=== PATIENT | female | born 1990 | race Caucasian/White ===

== ENCOUNTER 2022-05-07 08:10 | Emergency (ER) | payer BC, SELFPAY ==
[2022-05-07 08:19] VITALS: BP 141/91; PULSE 77; RESP 18; TEMP 35.7; O2SAT 99; BMI 40.4
[2022-05-07] MEDS: GI COCKTAIL (VISC LIDO/ANTACID) 30 ML PO (09:40)
[2022-05-07] MEDS: ONDANSETRON ODT 4 MG TAB PO (09:40)
[2022-05-07 10:02] VITALS: PULSE 87; RESP 18; O2SAT 99
--- NOTE | 2022-05-07 10:02 | CRLHL7_ITS ---
For Patients: As a result of the Century Cures Act, medical imaging exams and procedure reports are released immediately into your electronic medical record. You may view this report before your referring provider. If you have questions, please contact your health care provider. Indication: Left upper and middle abdominal pain Technique: Postcontrast CT abdomen and pelvis. 122 cc Isovue 370 intravenous contrast. Please note that all CT scans at this facility use dose modulation, iterative reconstruction, and/or weight-based dosing when appropriate to reduce radiation dose to as low as reasonably achievable. Comparison: 06/27/2021 Findings: Lung bases are clear. No pleural effusion or infiltrate. Normal liver. Gallbladder is absent. Normal common bile duct. Normal pancreas. Spleen unremarkable. Normal adrenal glands. Normal right kidney. Small 1 centimeter cyst anterior left kidney. Normal ureters. No retroperitoneal adenopathy. No mesenteric adenopathy. Stable appearance of the periumbilical subcutaneous fat. Normal uterus. The ovaries are within normal limits. Previously noted right ovarian cyst is no longer present. Normal bladder. No bowel obstruction or free air. No inflammatory change. Normal appendix. Incidental hyperdense stool at the hepatic flexure. Osseous structures are normal. No pelvic or inguinal adenopathy. Impression: Normal appendix. No bowel obstruction or inflammatory change. No evidence of inflammatory bowel disease. Status post cholecystectomy. Please note that all CT scans at this facility use dose modulation, iterative reconstruction, and/or weight-based dosing when appropriate to reduce radiation dose to as low as reasonably achievable. Dictated by Kwasi Brink MD @ 05/07/2022 11:21:11 AM (Electronically Signed)
--- NOTE | 2022-05-07 10:04 | ED_ITS ---
HPI - Abdominal Pain General Chief Complaint: Abdominal Pain Stated Complaint: Left side Abdominal pain/nausea Time Seen by Provider: 05/07/22 08:57 History of Present Illness HPI narrative: 32-year-old woman presenting to the emergency department with complaint of dyspeptic type pain but in particular a flare of upper left-sided abdominal pain that just will not go away over the last 4 days or so. This comes and goes in intensity. She also has some mid abdominal pain. She has been trying Pepcid and Pepto-Bismol. Notes a history of irritable bowel but this is much different. And has a propensity to constipation. This is different than any enteritis she has had before as well. Upper stomach pain and GERD flare may have started as long as 2 weeks ago. She notes a history of cholecystectomy. Stops herself frequently in apparent confusion noting how tired she is having w orked overnight. She has not been vomiting. Can have some nausea. Pain flares after any attempt at eating or drinking. Particularly after eating about an hour later will have diarrhea. No hematochezia. No dysuria or urgency noted. Pain is worse with movement Related Data Home Medications Medication Instructions Recorded Confirmed albuterol sulfate 90 mcg/actuation inhalation 05/07/22 aerosol inhaler (ProAir HFA) dextroamphetamine-amphetamine 10 05/07/22 mg tablet dextroamphetamine-amphetamine ER PO 05/07/22 25 mg 24hr capsule,extend release (Adderall XR) famotidine 20 mg tablet (Acid 20 mg PO DAILY 05/07/22 05/07/22 Controller) loratadine 10 mg tablet mg 05/07/22 sumatriptan succinate 100 mg tablet mg PO 05/07/22 tizanidine 2 mg tablet mg 05/07/22 Previous Rx's Medication Instructions Recorded dicyclomine 10 mg capsule 10 - 20 mg PO TID PRN abdominal 05/07/22 cramping #30 caps omeprazole 40 mg capsule,delayed 40 mg PO DAILY #30 caps 05/07/22 release Allergies Allergy/AdvReac Type Severity Reaction Status Date / Time prochlorperazine Allergy Intermediate Verified 05/07/22 08:29 [From Compazine] reglan Allergy Intermediate Anxiety Uncoded 05/07/22 08:29 [facility] Medical History (Updated 05/07/22 @ 12:14 by Kwasi Lira MD) GERD (gastroesophageal reflux disease) History of IBS Insulin resistance Migraines PCOS (polycystic ovarian syndrome) Reflux gastritis Surgical History (Updated 05/07/22 @ 08:33 by Amarilys Cottrell RN) H/O sinus surgery History of cholecystectomy History of tonsillectomy and adenoidectomy Social History Smoking Status: Never smoker How often do you have a drink containing alcohol: never AUDIT-C Alcohol total score: 0 Non-prescribed substance use: denies use Exam Narrative: Exam Narrative: Clearly sleepy. Appears uncomfortable. Breathing easily though. Appropriately casually groomed. Oropharynx unremarkable. Lungs are clear Cardiovascular regular rate and rhythm no murmur rub or gallop Abdomen is normoactive bowel sounds. Overweight. Rather tender in the left mid to upper abdomen and less so in about fdc between the umbilicus and pubic symphysis in the midline. No masses are appreciated there are no peritoneal sig ns. No flank pain Extremities are without edema. Moving all extremities without difficulty. Const: Vital Signs, click to edit/add: Vital Signs - 24 hr 05/07/22 08:19 05/07/22 10:02 Temperature 96.2 F L Pulse Rate [Pulse Oximeter] 77 87 Respiratory Rate 18 18 Blood Pressure [[facility] Upper [facility]] 141/91 H Pulse Oximetry 99 99 Oxygen Delivery Me thod Room Air Room Air Documenting provider has reviewed patient's vital signs: yes Course Course Hospital Course: Given triage note had initially ordered Zofran GI cocktail trial. She initially had declined ultimately did take it. Apparently did not affect symptoms Vital Signs Vital signs: Initial Vital Signs Temperature 96.2 F L 05/07/22 08:19 Temperature Source Temporal Artery Scan 05/07/22 08:19 Pulse Rate 77 05/07/22 08:19 Respiratory Rate 18 05/07/22 08:19 Blood Pressure 141/91 H 05/07/22 08:19 Blood Pressure Mean 107 05/07/22 08:19 Blood Pressure Position Supine 05/07/22 08:19 Pulse Oximetry 99 05/07/22 08:19 Oxygen Delivery Method 05/07/22 08:19 Vital Signs Temperature 96.2 F L 05/07/22 08:19 Pulse Rate 77 05/07/22 08:19 Respiratory Rate 18 05/07/22 08:19 Blood Pressure 141/91 H 05/07/22 08:19 Pulse Oximetry 99 05/07/22 08:19 Oxygen Delivery Method 05/07/22 08:19 Temperature 96.2 F L 05/07/22 08:19 Pulse Rate 78 05/07/22 12:00 Respiratory Rate 16 05/07/22 12:00 Blood Pressure 132/88 05/07/22 12:00 Pulse Oximetry 98 05/07/22 12:00 Oxygen Delivery Method 05/07/22 10:02 MDM - Abdominal Pain MDM Narrative Medical decision making narrative: With complaint of significant pain of this duration unaffected by GI cocktail, decided to proceed with CT imaging. Pain medication also given the form of ketorolac and morphine as well as IV fluids. Pain improved I did review IV contrasted CT scan of the abdomen pelvis. Was unremarkable. Clinical picture did potentially seem more of a functional abdominal pain. Perhaps an infectious etiology exacerbating underlying irritable bowel. Gastric ulcer? Medical Records Attestation: I reviewed the patient's medical records. Lab Data Attestation: I reviewed the patient's lab results. Labs: Lab Results 05/07/22 05/07/22 05/07/22 Range/Units 10:10 10:10 10:10 WBC 6.76 (4.50-11.00) K/uL RBC 4.34 (4.00-5.20) m/uL Hgb 12.8 (12.0-16.0) gm/dL Hct 37.4 (33.0-51.0) % MCV 86 (80-100) fL MCH 30 (26-34) pg MCHC 34 (32-36) gm/dL RDW Coeff of Levon 11.8 (11.5-15.5) % Plt Count 277 (140-440) K/uL Neut % (Auto) 44.2 (42.0-72.0) % Lymph % (Auto) 43.3 (20-44) % [place] % (Auto) 8.0 (0.0-11.0) % Eos % (Auto) 4.0 (0.0-7.0) % Baso % (Auto) 0.4 (0.0-3.0) % Neut # (Auto) 2.98 (1.7-7.0) K/uL Lymph # (Auto) 2.93 H (0.90-2.90) K/uL [place] # (Auto) 0.50 (0.00-0.90) K/UL Eos # (Auto) 0.27 (0.00-0.50) K/uL Baso # (Auto) 0.03 (0.00-0.30) K/uL Abs Immat Gran (auto) 0.01 (0.00-0.30) K/uL Sodium 138 (135-149) mmol/L Potassium 3.3 L (3.6-5.1) mmol/L Chloride 101 (96-114) mmol/L Carbon Dioxide 27 (20-32) mmol/L BUN 12 (5-24) mg/dL Creatinine 0.6 (0.5-1.5) mg/dL Estimated Creat Clear 124.85 Estimated GFR 121 ml/min Glucose 103 (60-115) mg/dL Calcium 10.2 (8.4-10.6) mg/dL Total Bilirubin 0.8 (0.1-1.5) mg/dL Direct Bilirubin 0.3 (0.0-0.5) mg/dL AST 25 (12-35) U/L ALT 23 (4-35) U/L Alkaline Phosphatase 80 (40-150) U/L C-Reactive Protein 1.0 (0.5-1.0) mg/dL Total Protein 8.1 (6.0-8.3) g/dL Albumin 4.7 (3.3-5.0) g/dL Lipase 152 (23-300) U/L HCG, Qual Negative (Negative) Urine Color Yellow (Yellow) Urine Appearance Clear (Clear) Urine pH 5.5 (5.0-8.5) Ur Specific [place] >= 1.030 (1.000-1.030) Urine Protein Negative (Negative) Urine Glucose (UA) Negative (Negative) Urine Ketones Trace A (Negative) Urine Blood Negative (Negative) Urine Nitrite Negative (Negative) Urine Bilirubin Negative (Negative) Urine Urobilinogen 0.2 (0.2-1.0) Ur Leukocyte Esterase Negative (Negative) Urine RBC 0-2 (0-2) Urine WBC 0-2 (0-5) Ur Squamous Epith Cells Few (None-Few) Urine Bacteria Few A (None) Urine Mucus Few A (None) Discharge Plan Discharge Clinical Impression: Abdominal pain, Irritable bowel Patient Disposition: Home w/ Parent or Adult Condition: Improved Additional Instructions: Continue to focus on hydration. Slow advance of diet over the next 48 hours. Diluted juices, broths and thicker soups and smoothies. Rice. [place]. I would consider transitioning over to omeprazole from your Pepcid and take omeprazole over the next couple of weeks. The Bentyl is more for the pain or cramping. If this isn't improving over this 2 week, follow-up. Might need more i nvestigation, possibly a scope. Return for marked increase in pain, intractable vomiting or diarrhea, associated fever Prescriptions: New omeprazole 40 mg capsule,delayed release(DR/EC) 40 mg PO DAILY Qty: 30 0RF dicyclomine 10 mg capsule 10 - 20 mg PO TID PRN (Reason: abdominal cramping) Qty: 30 0RF Rx Instructions: start with 1 cap per dosing No Action famotidine [Acid Controller] 20 mg tablet 20 mg PO DAILY tizanidine 2 mg tablet Label Comments: TAKE ONE TABLET BY MOUTH ONE TIME DAILY AT BEDTIME sumatriptan succinate 100 mg tablet PO Label Comments: TAKE HALF TABLET BY MOUTH EVERY 2 HOURS IF NEEDED FOR MIGRAINE. MAX DOSE: 2 TABLETS (200 MG) PER 24 HOURS. dextroamphetamine-amphetamine 10 mg tablet Label Comments: TAKE ONE TABLET BY MOUTH TWICE DAILY albuterol sulfate [ProAir HFA] 90 mcg/actuation HFA aerosol inhaler INHALATION Label Comments: Inhale 1-2 Puffs by mouth every 4 hours if needed for Shortness Of Breath loratadine 10 mg tablet Label Comments: TAKE ONE TABLET BY MOUTH ONE TIME DAILY dextroamphetamine-amphetamine [Adderall XR] 25 mg capsule,extended release 24hr PO Label Comments: TAKE ONE CAPSULE (25MG) BY MOUTH ONE TIME DAILY Follow Up/Referrals: Provider,Not a Local [Primary Care Provider] - Stand Alone Forms: [employer] Info Instructions
[2022-05-07] MEDS: 0.9 % SODIUM CHLORIDE 1000 ml 1,000 ML IV (10:19)
[2022-05-07] MEDS: KETOROLAC 15 MG/ML inj IVP (10:22)
[2022-05-07 10:23] LABS: Appearance Urine Clear (Clear); Bilirubin Urine Negative (Negative); Blood Urine Negative (Negative); Color Urine Yellow (Yellow); Glucose Urine Negative (Negative); Ketones Urine Trace (Negative); Leukocyte Esterase Urine Negative (Negative); Nitrite Urine Negative (Negative); Protein Urine Negative (Negative); Specific Gravity Urine >= 1.030 (1.000-1.030); Urobilinogen Urine 0.2 (0.2-1.0); pH Urine 5.5 (5.0-8.5)
[2022-05-07 10:24] LABS: HCG Qualitative* Negative (Negative)
[2022-05-07 10:25] LABS: Basophils Absolute Auto 0.03 K/uL (0.00-0.30); Basophils Percent Auto 0.4 % (0.0-3.0); Eosinophils Absolute Auto 0.27 K/uL (0.00-0.50); Hematocrit 37.4 % (33.0-51.0); Hemoglobin* 12.8 gm/dL (12.0-16.0); Immature Granulocytes Abs Auto 0.01 K/uL (0.00-0.30); Lymphocytes Absolute Auto 2.93 K/uL (0.90-2.90); Lymphocytes Percent Auto 43.3 % (20-44); Mean Corpuscular HGB Conc 34 gm/dL (32-36); Mean Corpuscular Hemoglobin 30 pg (26-34); Mean Corpuscular Volume 86 fL (80-100); Neutrophils Absolute Auto 2.98 K/uL (1.7-7.0); Neutrophils Percent Auto 44.2 % (42.0-72.0); Platelet Count* 277 K/uL (140-440); RDW Coefficient of Variation % 11.8 % (11.5-15.5); Red Blood Count 4.34 m/uL (4.00-5.20); White Blood Count* 6.76 K/uL (4.50-11.00)
[2022-05-07] MEDS: MORPHINE 4 MG/ML INJ IVP (10:25)
[2022-05-07 10:28] LABS: Slide Review Reflex No
[2022-05-07 10:30] LABS: Chloride* 101 mmol/L (96-114)
[2022-05-07 10:31] LABS: Albumin* 4.7 g/dL (3.3-5.0); Potassium* 3.3 mmol/L (3.6-5.1)
[2022-05-07 10:33] LABS: Creatinine* 0.6 mg/dL (0.5-1.5); Est. Creatinine Clearance* 124.85; Estimated Glomerular Filt Rate 121 ml/min
[2022-05-07 10:34] LABS: Alanine Aminotransferase* 23 U/L (4-35); Alkaline Phosphatase* 80 U/L (40-150); Aspartate Amino Transferase* 25 U/L (12-35); Bilirubin Direct* 0.3 mg/dL (0.0-0.5); Bilirubin Total* 0.8 mg/dL (0.1-1.5); Blood Urea Nitrogen* 12 mg/dL (5-24); Calcium* 10.2 mg/dL (8.4-10.6); Carbon Dioxide* 27 mmol/L (20-32); Glucose* 103 mg/dL (60-115); Lipase* 152 U/L (23-300); Total Protein* 8.1 g/dL (6.0-8.3)
[2022-05-07 10:37] LABS: Bacteria Urine Few; Mucus Urine Few; RBC Urine 0-2 (0-2); Squamous Epithelial Cell Urine Few (None-Few); WBC Urine 0-2 (0-5)
[2022-05-07 10:54] LABS: Sodium* 138 mmol/L (135-149)
[2022-05-07 12:00] VITALS: BP 132/88; PULSE 78; RESP 16; O2SAT 98
== END 2022-05-07 12:22 | disposition home or self-care (01) ==
PROVIDERS: Emergency Provider Family Medicine
DX: R10.9 Unspecified abdominal pain (principal)
CPT/HCPCS: 36415; 74177; 80048; 80076; 81001; 83690; 84703; 85025; 86140; 87045; 87046; 87086; 87427; 94761; 96374; 96375; 99284; 99285; A9270; J1885; J2270; J7030; Q9967

== ENCOUNTER 2022-07-23 09:29 | Outpatient (CLI) | payer BC, SELFPAY ==
--- OUTSIDE RECORDS SUMMARY | 2022-07-23 09:35 | XMS_ITS | Clinical Summary ---
:1990 Author Organization [facility] [place] [address] Care Team Providers Name Role Phone Haylie Bertrand Primary Care Provider Allergies Active Allergy Reactions Severity Noted Date Comments Metoclopramide Hcl Anxiety 04/30/2016 Anxiety Prochlorperazine Anxiety 04/30/2016 Anxiety Medications Medication Sig Dispensed Refills Start End Date Status Date loratadine Take 1 Tablet 90 Tablet 2 Activ e (CLARITIN) 10 mg (10 mg) by 1 tabletIndications: mouth once Seasonal allergies daily. SUMAtriptan TAKE HALF 9 Tablet 8 Active (IMITREX) 100 mg TABLET BY 1 tabletIndications: MOUTH EVERY 2 Migraine with aura HOURS IF and without status NEEDED FOR migrainosus, not MIGRAINE. MAX intractable DOSE: 2 TABLETS (200 MG) PER 24 HOURS. tiZANidine Take 1 Tablet 30 Tablet 3 Activ e (ZANAFLEX) 2 mg (2 mg) by 2 tabletIndications: mouth at Anxiety bedtime. metFORMIN TAKE ONE 180 Tablet 1 Active (GLUCOPHAGE XR) 500 TABLET BY 2 mg Extended-Release MOUTH TWICE A tabletIndications: DAY WITH PCOS (polycystic MEALS ovarian syndrome) albuterol HFA Inhale 1-2 1 Each 0 Activ e (PRO-AIR; VENTOLIN; Puffs by 2 PROVENTIL) 90 mouth every 4 mcg/actuation hours if inhalerIndications: needed for SOB (shortness of Shortness Of breath) Breath. inhalational spacing For home use. 1 Each 0 Active deviceIndications: 2 SOB (shortness of breath) dextroamphetamine-am Take 1 30 Capsule 0 Active phetamine (Adderall Capsule (25 2 XR) 25 mg mg) by mouth Extended-Release once daily. capsuleIndications: ADHD (attention deficit hyperactivity disorder), combined type omeprazole Take 1 90 Capsule 0 Active (PRILOSEC) 40 mg Capsule (40 2 Delayed-Release mg) by mouth capsuleIndications: once daily. Gastroesophageal reflux disease with esophagitis without hemorrhage dextroamphetamine-am Take 1 30 Capsule 0 08/18/19 Active phetamine (Adderall Capsule (10 2 23 XR) 10 mg mg) by mouth Extended-Release once daily. capsuleIndications: ADHD (attention deficit hyperactivity disorder), combined type dextroamphetamine-am Take 1 Tablet 60 Tablet 0 07/19 Discontinued phetamine (AdderalL) (10 mg) by 2 22 (Reorder 10 mg mouth in the (E-canc el not tabletIndications: morning and 1 sent)) ADHD (attention Tablet (10 deficit mg) in the hyperactivity evening. disorder), combined type dextroamphetamine-am Take 1 30 Capsule 0 07/11/20 Discontinued phetamine (Adderall Capsule (25 2 22 (Reorder XR) 25 mg mg) by mouth (E-canc el not Extended-Release once daily. s ent)) capsuleIndications: ADHD (attention deficit hyperactivity disorder), combined type omeprazole Take 40 mg by 0 07/11/20 Disco ntinued (PRILOSEC) 40 mg mouth once 2 22 (R eorder Delayed-Release daily. (E-c ancel not capsule sent)) famotidine (PEPCID) Take 1 Tablet 90 Tablet 0 Discontinued 40 mg (40 mg) by 2 22 (*Patient states tabletIndications: mouth once no longer Abdominal pain, daily. taki ng/Not on epigastric sending f acility list) LORazepam (ATIVAN) Take 1 Tablet 10 Tablet 0 0 Discontinued 0.5 mg (0.5 mg) by 2 22 (*Patien t states tabIndications: mouth at no l onger Abdominal pain, bedtime if jackeline ing/Not on epigastric needed for sending facility Anxiety. list) dextroamphetamine-am Take 1 Tablet 60 Tablet 0 07/19 Discontinued phetamine (AdderalL) (10 mg) by 10 03 (*Medication 10 mg mouth two adjustment ) tabletIndications: times daily. 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 07/26/2016 Panic disorder (episodic paroxysmal anxiety) without a goraphobia 07/26/2016 ADHD (attention deficit hyperactivity disorder), combi laci type 07/26/2016 PTSD (post-traumatic stress disorder) 07/26/2016 Reflux esophagitis 05/09/2016 Depression with anxiety 05/09/2016 Resolved Problems Problem Noted Date Resolved Date Late care 08/28/2016 05/10/2022 Supervision of normal first 04/30/2016 Overview: BETTY: 08/14/16 FOB: Blood Type: A NEGATIVE 1st trimester screen: GTT/hgb: GBS status: US: Gender: 1) 2) Alerts: Management plans: Abdominal pain affecting 05/10 Decreased movement 05/10/2022 False labor 05/10/2022 Encounters Date Type Specialty Care Team Description 07/23/2022 Travel 07/19/2022 Preop Visit Haylie Bertrand DO Preoperativ e Exam (EGD) 07/19/2022 Telephone Haylie Bertrand DO Medication Problem (dextroamphetam ine-amphetami ne (AdderalL) 1 0 mg tablet/) 07/19/2022 Travel 05/25/2022 Telephone Stan Bennett Proced ure MD 05/23/2022 Office Visit Matilde Guzman DO Abdom inal Pain (LLQ x 1 day Soft stool x 3 weeks ) 05/23/2022 Travel 05/23/2022 Nurse Triage Haylie Bertrand DO Abdominal P ain 05/10/2022 Office Visit Haylie Bertrand, Gi Problem (X2 weeks ago noted she had a really bad stomach ache - tried going to the bathroom for 6 hours - nothing happe laci - has had a lingering ups et stomach - feels like it i s worsening near her period - did go to the ER - CT and blood work was normal - 40 mg of Prilosec - feel s like it hasn't helped m uch - has not noted blood in stools ) 05/10/2022 Travel 05/07/2022 Orders Only Scanner 1 scan: (1-Ord) ABD PELVIS W CON, ABD PELVIS W CON, 05/07/2022 from Last 3 Months Immunizations Name Administration Dates Next Due DTP 12/18/1993, 08/26/1990, 1989, 02/1989, 1989 HIB HbOC (HibTITER) 05/19/1990 Hepatitis B (Peds) 12/03/1997, 05/28/1996, 02/22/1995 Influenza Virus, Unspecified 05/28/1996, 07/08/1995 MMR 02/21/1998, 05/19/1990, 1989 Oral Polio Vaccine 12/18/1993, 08/26/1990, 1989, 02/1989 Td (Age >=7 Years) 03/13/2004 Tdap 08/28/2016, 06/06/2016, 03/12/2004 Family History Medical History Relation Name Comments Arthritis Mother Hyperlipidemia Mother Hypertension Mother Anesthesia Problem No Family History Relation Name Status Comments Father Alive Maternal Grandfather Maternal Grandmother Mother Alive Paternal Grandfather Paternal Grandmother Alive Social History Tobacco Use Types Packs/Day Years Used Date Smoking Tobacco: Never Smokeless Tobacco: Never Tobacco Cessation: Counseling Given: Yes Alcohol Use Standard Drinks/Week Comments No 0 (1 standard drink = 0.6 oz pure alcoho l) Sex Assigned at Date Recorded Female 05/11/2021 8:29 PM CDT COVID-19 Exposure Response Date Recorded In the last 10 days, have you been in contact Unable to asse ss 07/23/2022 8:01 AM [employer] with someone who was confirmed or suspected to have Coronavirus/COVID-19? Obstetrics History Para Term AB IAB SAB Ectopic Multiple Living Live Births 1 1 1 0 0 0 0 0 0 1 1 Date Outcome GA Total Labor/2nd/3rd Weight Sex Delivery Anes PTL Megan A 1 A5 Name Clin Labor 08/28 Term 42w 4.03 kg M Vag Epidu N Emani 8 9 0d (8 lb ral ng 14 oz) Complications: None Delivery Location: [facility] Last Filed Vital Signs Vital Sign Reading Time Taken Comments Blood Pressure 145/89 07/19/2022 1:11 PM [employer] Pulse 87 07/19/2022 1:11 PM [employer] Temperature 36.9 ??C (98.5 ??F) 07/19/2022 1:11 PM [employer] Respiratory Rate 20 12/22/2020 9:18 AM CDT Oxygen Saturation 100% 07/19/2022 1:11 PM [employer] Inhaled Oxygen Concentration - - Weight 109.8 kg (242 lb) 07/19/2022 1:11 PM [employer] Height 171 cm (5' 7.32) 05/10/2022 3:07 PM CDT Body Mass Index 37.54 05/10/2022 3:07 PM CDT Plan of Treatment Upcoming Encounters Date Type Specialty Care Team Description 08/20/2022 Office Visit Zenaida Bertrand , DO [address] [place], [place] [address] (Wo rk) Health Maintenance Due Date Last Done Comments COVID-19 vaccine series (3 - 08/16/2021 06/21/2021, 021 Booster for Moderna series) Influenza for age 9-49 04/12/2022 05/28/1996, 07/08/1995 Depression screening for age 12+ 01/26/2023 01/26/2022, 12/2020, 02/10/2021, Additional history exists BMI (ht and wt on same day) for 05/10/2023 05/10/2022, 07/0 09/2020, age 18+ 11/21/2020, Additional history exists Pap test for age 21-65 06/06/2026 06/06/2021, 02/10/2021, 05/09/2016 Tetanus booster 08/28/2026 08/28/2016, 06/06/2016, 03/13/2004, Additional history exists Tdap Completed 08/28/2016, 06/06/2016, 03/12/2004 HIV for age 15-65 Completed 02/10/2021, 05/09/2016 Hepatitis C screening for age Completed 01/26/2022 18-79 Procedures Procedure Name Priority Date/Time Associated Comments Diagnosis CBC WITH AUTO Routine 05/23/2022 2:42 PM Abdominal pain, Resul ts for this DIFFERENTIAL CDT epigastric procedure are i n the results section. CBC WITH AUTO Routine 05/23/2022 2:42 PM Abdominal pain, Resul ts for this DIFFERENTIAL CDT epigastric procedure are i n the results section. URINALYSIS MICROSCOPIC Routine 05/23/2022 2:40 PM Abdominal pa in, Results for this CDT epigastric procedure are i n the results section. UA W/ SEDIMENT EXAM Routine 05/23/2022 2:40 PM Abdominal pain, Results for this REFLEXED PER CRITERIA CDT epigastric proced ure are in the results section. SCAN-CT INTERPRETATION 05/07/2022 12:00 AM CDT from Last 3 Months Results (ABNORMAL) CBC WITH AUTO DIFFERENTIAL (05/23/2022 2:42 PM CDT) [facility] Method Time Signature WHITE BLOOD 7.0 4.5 - 05/23/2022 [facility] [place] COUNT 11.0 3:00 PM CDT [facility] thou/cu CLINIC mm RED BLOOD COUNT 4.51 4.00 - 05/23/2022 [facility] 5.20 3:00 PM CDT [facility] mil/cu mm CLINIC HEMOGLOBIN 13.5 12.0 - 05/23/2022 [facility] 16.0 g/dL 3:00 PM [facility] HEMATOCRIT 38.7 33.0 - 05/23/2022 [facility] 51.0 % 3:00 PM [facility] MCV 86 80 - 100 05/23/2022 [facility] [place] fL 3:00 PM [facility] MCH 29.9 26.0 - 05/23/2022 [facility] 34.0 pg 3:[address] [facility] MCHC 34.9 32.0 - 05/23/2022 [facility] [place] 36.0 g/dL 3:[address] [facility] RDW 12.8 11.5 - 05/23/2022 [facility] [place] 15.5 % 3:[address] [facility] PLATELET COUNT 259 140 - 440 05/23/2022 [facility] thou/cu 3:00 PM CDT [facility] CLINIC MPV 12.3 (H) 6.5 - 05/23/2022 [facility] [place] 11.0 fL 3:[address] [facility] % NEUT 55.4 % 05/23/2022 [facility] 3:[address] [facility] % LYMPH 31.4 % 05/23/2022 [facility] 3:[address] [facility] % MONO 8.7 % 05/23/2022 [facility] 3:[address] [facility] % EOS 4.1 % 05/23/2022 [facility] 3:[address] [facility] % BASO 0.4 % 05/23/2022 [facility] 3:[address] [facility] ABSOLUTE 3.9 1.7 - 7.0 05/23/2022 [facility] NEUTROPHILS thou/cu 3:00 PM CDT [facility] CLINIC ABSOLUTE 2.2 0.9 - 2.9 05/23/2022 [facility] [place] LYMPHOCYTES thou/cu 3:[address] [facility] ABSOLUTE 0.6 <0.9 05/23/2022 [facility] [place] MONOCYTES thou/cu 3:00 PM CDT [facility] CLINIC ABSOLUTE 0.3 <0.5 05/23/2022 [facility] [place] EOSINOPHILS thou/cu 3:00 PM CDT [facility] CLINIC ABSOLUTE 0.0 <0.3 05/23/2022 [facility] [place] BASOPHILS thou/cu 3:[address] [facility] Specimen Anatomical Collection Method / Collection Time Recei compa Time (Source) Location / Volume Laterality Blood BLOOD SPECIMEN / Venipuncture / 05/23/2022 2:42 2021 2:46 Unknown Unknown PM CDT PM CDT Matilde Guzman DO HEMATOLOGY Performing Organization Address City/State/ZIP Code Phon e Number [facility] [address] [place] [address] (ABNORMAL) URINALYSIS MICROSCOPIC (05/23/2022 2:40 PM CDT) Analysis Performed At [facility] [place] logist Time Signature RBC 3-5 (A) 0-2, None 05/23/2022 [facility] Seen /HPF 3:[address] [facility] WBC 0-2 0-2, 3-5, 05/23/2022 [facility] None Seen 3:11 PM CDT [facility] /HPF CLINIC BACTERIA Few None Seen, 05/23/2022 [facility] Rare, Few 3:11 PM T [facility] Bacteria/H CLINIC PF EPITHELIAL Few None Seen, 05/23/2022 [facility] CELLS Few 3:11 PM CDT [facility] Epi/HPF CLINIC Mucus Present 05/23/2022 [facility] 3:[address] [facility] Specimen Anatomical Collection Method Collection Time Receive d Time (Source) Location / / Volume Laterality Urine URINE SPECIMEN / Non-Blood / 05/23/2022 2:40 PM 05/23 2:58 Unknown Unknown CDT PM CDT Matilde Guzman DO URINE Performing Organization Address City/State/ZIP Code Phon e Number [facility] [address] [place] [address] (ABNORMAL) UA W/ SEDIMENT EXAM REFLEXED PER CRITERIA (05/23/2022 2:40 PM CDT) [facility] gist Method Time Signature COLOR Yellow Yellow Color 05/23/2022 [facility] 3:[address] [facility] CLARITY Clear Clear 05/23/2022 [facility] Clarity 3:[address] [facility] SPECIFIC 1.025 1.010, 05/23/2022 [facility] GRAVITY,URINE 1.015, 3:[address] [facility] 1.020, 1.025 [facility] PH,URINE 6.0 6.0, 7.0, 05/23/2022 [facility] 8.0, 5.5, 3:[address] [facility] 6.5, 7.5, CLINIC 8.5 UROBILINOGEN, Normal Normal EU/dl [facility]20[facility] [facility] PROTEIN, Trace (A) Negative 05/23/2022 [facility] URINE mg/dL 3:[address] [facility] GLUCOSE, Negative Negative 05/23/2022 [facility] URINE mg/dL 3:[address] [facility] KETONES,URINE Trace (A) Negative 05/23/2022 [facility] mg/dL 3:[address] [facility] BILIRUBIN,URI Abnormal (A) Negative 05/23/2022 [facility] H NE 3:[address] [facility] Comment: A variety of metabolites and/or medications may result in a positive bilirubin result. Clinical correlation i s recommended. OCCULT BLOOD,URINE Trace (A) Negative 05/23/2022 3:11 PM [facility] NITRITE Negative Negative 05/23/2022 3:11 PM [facility] LEUKOCYTE ESTERASE Negative Negative 05/23/2022 3:[address] [facility] Specimen Anatomical Collection Method Collection Time Receive d Time (Source) Location / / Volume Laterality Urine URINE SPECIMEN / Non-Blood / 05/23/2022 2:40 PM 05/23 2:58 Unknown Unknown CDT PM CDT Matilde Guzman DO URINE Performing Organization Address City/State/ZIP Code Phon e Number [facility] [address] [place] [address] SCAN-CT INTERPRETATION (05/07/2022 12:00 AM CDT) Anatomical Region Laterality Modality Other Narrative This result has an attachment that is no t available. Scanner OTHER from Last 3 Months Insurance Payer Benefit Plan / Subscriber ID Effective Dates Phone Addre ss Type Group [employer] [place] [employer] [id number] 2020-Present [address] [address] [place] [address] Roxy Velazco Personal/Family Self [id number] (Home) [place] [id number] Advance Directives Latest Code Status on File Code Status Date Activated Date Inactivated Comments Full Code 11/24/2020 9:37 AM 11/24/2020 5:42 PM Question Answer Comments Code Status Discussion: Discussed Code Status History Code Status Date Activated Date Inactivated Comments Full Code 08/28/2016 1:02 PM 08/29/2016 9:41 PM Full Code 08/28/2016 3:18 AM 08/28/2016 1:02 PM Full Code 08/27/2016 8:31 PM 08/28/2016 3:18 AM Full Code 08/27/2016 8:30 PM 08/27/2016 8:31 PM Care Teams Vp Marketing Relationship Specialty Start Date End Date Haylie Bertrand DO PCP - General Family Practice 11/21/[address] [place] [address] [address]
--- NOTE | 2022-07-23 11:26 | W.ANESCHARGE ---
Anesthesia Charges Start Date/Time Anesthesia Start Date: 07/23/22 Anesthesia Start Time: 11:00 Stop Date/Time Anesthesia Stop Date: 07/23/22 Anesthesia Stop Time: 11:20 Summary Emergency: No
--- NOTE | 2022-07-23 12:24 | W.ANESCHARGE ---
Anesthesia Charges Start Date/Time Anesthesia Start Date: 07/23/22 Anesthesia Start Time: 11:00 Stop Date/Time Anesthesia Stop Date: 07/23/22 Anesthesia Stop Time: 11:20 Summary Emergency: No
== END 2022-07-23 09:30 | disposition home or self-care (01) ==
PROVIDERS: PCP Student in an Organized Health Care Education/Training Program; Visit Provider Internal Medicine Gastroenterology
DX: R19.8 Other specified symptoms and signs involving the digestive system and abdomen (principal); K21.9 Gastro-esophageal reflux disease without esophagitis; K31.89 Other diseases of stomach and duodenum; R10.13 Epigastric pain
CPT/HCPCS: 00731; 43239; 88305; J2704